=== PATIENT | male | born 1940 | race Caucasian/White ===

== ENCOUNTER → 2016-12-18 | Outpatient (CLI) | payer MEDICARE ==
[2016-04-16 20:16] VITALS: BP 176/90
[~2016-12-18] VITALS: Ht 167.6 cm; Wt 77.1 kg
[~2016-12-18] MED LIST: ALBU8.5H8 INH; AMLO5TAB2 PO; ATEN50TA PO; ATOR20TA58 PO; LOSA25TA4 PO; REGADENOSON 0.4 MG/5 ML DISP.SYRIN. IV ONE; TAMS0.4C2 PO; TIOT18CA IH
--- NOTE | 2016-12-18 12:16 | RAD ---
APPROVED REPORT Test Type: Pharmacological Stress Nurse/Tech: CHELSI Brewer Test Indications: Elevated Calcium score Cardiac History: none Medications: see EHR Medical History: see EHR Resting ECG: SB PVC 1degree AVB Resting Heart Rate: 46 bpm Resting Blood Pressure: 189/67mmHg Pretest Chest Pain: None Nurse/Tech Notes Consent: The procedure was explained to the patient in lay terms. Informed consent was witnessed. Ryan eout was entered into [facility]. History and Stress Test performed by CHELSI Brewer Pharm. Details Pharmacologic stress testing was performed using 0.4mg per 5ml of regadenoson given intravenously ove r 7-10 seconds. Stress Symptoms SOA CP with Lexiscan resolved with completion POST EXERCISE Reason for Termination: Infusion complete Target HR: 76 Max Blood Pressure: 150/61mmHg Blood Pressure response to exercise: Normal blood pressure response during stress. Chest Pain: Yes. INTERPRETATION Stress EKG Conclusion: No acute changes were noted. Imaging Protocol IMAGE PROTOCOL: Rest Tc-99m/stress Tc-99m 1 day Rest: Stress: Viability: Radiopharm.Tc99m EmccmqrpfPi21g Sestamibi Dose11.4mCi 34.4mCi Duration 17min. 12min. Img Date 12/18/2016 12/18/2016 Inj-Img Pptw66xty. 60min. Rest Admin Site:IV - Left AntecubitalAdministrator: CHELSI Brewer Stress Admin Site: IV - Left AntecubitalAdministrator: CHELSI Brewer STRESS DATA End Diast. Vol.152.0mlAv. Heart Rate66.0bpm LVEDV index BSA3.0mlCardiac Output0.1L/min End Syst. Vol.55.0mlCO Index BSA6.4L/min LVESV index BSA1.0mlMyocardial Chzo453.0g Eject. Wpsulxsb21.0% Stress Rates Pk. Fill Rate1.95EDV/secLVtime Pk. Fill 264.04msec Pk. Empty Rate3.17ESV/secLVtime Pk. Xmrwl134.06msec 06/20 Pk. Fill1.06EDV/sec Stress Scores Regional WT0.00Summed WT11.00 Regional WM0.00Summed WM1.00 LV Perfusion There is a large sized, severe in intensity FIXED mid to distal inferior wall, apex and inferolateral defect suggestive of prior infarct without any ischemia. Based on EKG and wall motion in the area, t his may represent a diaphragmatic attenuation artifact. Wall Motion Grossly normal wall motion. Inferior wall not well visualized. LV Perf. Quant 17 Seg. SSS10.00 17 Seg. SRS13.00 17 Seg. SDS0.00 Stress Defect Extent (% LAD)10.60Rest Defect Extent (% LAD)16.90Rev. Defect Extent (% LAD)0.00 Stress Defect Extent (% LCX) 11.30Rest Defect Extent (% LCX)25.00Rev. Defect Extent (% LCX)0.00 Stress Defect Extent (% RCA)38.90Rest Defect Extent (% RCA)51.10Rev. Defect Extent (% RCA)0.00 Stress Defect Extent (% CARO)21.50Rest Defect Extent (% CARO)32.20Rev. Defect Extent (% CARO)0.00 Other Information Quality:Average Risk Assessment: Low-Moderate Risk Conclusion 1. No evidence of stress induced EKG changes. 2. There is a large sized, severe in intensity FIXED mid to distal inferior wall, apex and inferolate ral defect suggestive of prior infarct without any ischemia. Based on EKG and wall motion in the area , this may represent a diaphragmatic attenuation artifact. 3. Normal EF at 60% 4. Low to moderate risk study
== END | disposition home or self-care (01) ==
LOC: NM 07:26
PROVIDERS: ATTEND Family Medicine
DX: R93.1 Abnormal findings on diagnostic imaging of heart and coronary circulation (principal); I25.10 Atherosclerotic heart disease of native coronary artery without angina pectoris; I10 Essential (primary) hypertension; Z79.01 Long term (current) use of anticoagulants; Z87.891 Personal history of nicotine dependence
CPT/HCPCS: 78452; 93017; 96374; 96376; A9500; J2785

== ENCOUNTER → 2017-01-30 | Outpatient (CLI) | payer MEDICARE ==
[2016-04-16 20:16] VITALS: BP 176/90
[~2017-01-30] MED LIST changes: -REGADENOSON 0.4 MG/5 ML DISP.SYRIN. IV ONE
[2017-01-30 12:39] LABS: BASO % 1 % (0-3); EOS # 0.5 x10^3/uL (0.0-0.7); EOS % 7 % (0-3); HEMATOCRIT 42.4 % (39.0-53.0); HEMOGLOBIN 13.6 g/dL (13.0-17.5); LYMPH # 1.1 x10^3/uL (1.0-4.8); LYMPH % 18 % (24-48); MEAN CORPUSCULAR HEMOGLOBIN 29 pg (25-35); MEAN CORPUSCULAR HGB CONC 32 g/dL (31-37); MEAN CORPUSCULAR VOLUME 90 fL (79-100); MONO # 0.7 x10^3/uL (0.0-1.1); MONO % 10 % (0-9); NEUT # 4.2 x10^3uL (1.8-7.7); NEUT % 64 % (31-73); PLATELET COUNT 125 x10^3/uL (140-400); RED BLOOD COUNT 4.73 x10^6/uL (4.30-5.70); RED CELL DISTRIBUTION WIDTH 14.3 % (11.5-14.5); WHITE BLOOD COUNT 6.5 x10^3/uL (4.0-11.0)
[2017-01-30 13:02] LABS: CALCIUM 9.2 mg/dL (8.5-10.1); CREATININE 3.2 mg/dL (0.7-1.3); GFR 18.9; PHOSPHORUS 3.7 mg/dL (2.6-4.7); POTASSIUM 4.6 mmol/L (3.5-5.1)
[2017-01-31 21:09] LABS: CALCIUM PTH 9.4 mg/dL (8.6-10.2)
== END | disposition home or self-care (01) ==
LOC: LAB 11:54
PROVIDERS: ATTEND Internal Medicine Nephrology
DX: N18.4 Chronic kidney disease, stage 4 (severe) (principal); N26.9 Renal sclerosis, unspecified; Z68.27 Body mass index [BMI] 27.0-27.9, adult
CPT/HCPCS: 36415; 80069; 83970; 85025

== ENCOUNTER → 2017-03-06 | Outpatient (CLI) | payer MEDICARE ==
[2016-04-16 20:16] VITALS: BP 176/90
[2017-03-06 12:04] LABS: ALBUMIN 3.1 g/dL (3.4-5.0); CALCIUM 10.1 mg/dL (8.5-10.1); CREATININE 3.2 mg/dL (0.7-1.3); GFR 18.9
[2017-03-06 12:05] LABS: PHOSPHORUS 3.4 mg/dL (2.6-4.7)
== END | disposition home or self-care (01) ==
LOC: LAB 11:17
PROVIDERS: ATTEND Internal Medicine Nephrology
DX: I12.9 Hypertensive chronic kidney disease with stage 1 through stage 4 chronic kidney disease, or unspecified chronic kidney disease (principal); N18.4 Chronic kidney disease, stage 4 (severe); Z68.27 Body mass index [BMI] 27.0-27.9, adult
CPT/HCPCS: 36415; 80069

== ENCOUNTER → 2017-04-16 | Outpatient (CLI) | payer MEDICARE ==
[2016-04-16 20:16] VITALS: BP 176/90
[2017-04-16 14:51] LABS: ALBUMIN 2.9 g/dL (3.4-5.0); CALCIUM 9.3 mg/dL (8.5-10.1); CREATININE 2.4 mg/dL (0.7-1.3); GFR 26.4; PHOSPHORUS 3.5 mg/dL (2.6-4.7)
== END | disposition home or self-care (01) ==
LOC: LAB 13:53
PROVIDERS: ATTEND Nurse Practitioner Family
DX: I12.9 Hypertensive chronic kidney disease with stage 1 through stage 4 chronic kidney disease, or unspecified chronic kidney disease (principal); N18.4 Chronic kidney disease, stage 4 (severe); Z68.27 Body mass index [BMI] 27.0-27.9, adult
CPT/HCPCS: 36415; 80069

== ENCOUNTER → 2017-05-08 | Outpatient (CLI) | payer MEDICARE ==
[2016-04-16 20:16] VITALS: BP 176/90
[2017-05-08 15:13] LABS: ALBUMIN 2.9 g/dL (3.4-5.0); CALCIUM 10.2 mg/dL (8.5-10.1); CREATININE 2.7 mg/dL (0.7-1.3); PHOSPHORUS 3.8 mg/dL (2.6-4.7); POTASSIUM 4.7 mmol/L (3.5-5.1)
== END | disposition home or self-care (01) ==
LOC: LAB 14:06
PROVIDERS: ATTEND Nurse Practitioner Family
DX: I12.9 Hypertensive chronic kidney disease with stage 1 through stage 4 chronic kidney disease, or unspecified chronic kidney disease (principal); N18.4 Chronic kidney disease, stage 4 (severe); Z68.27 Body mass index [BMI] 27.0-27.9, adult
CPT/HCPCS: 36415; 80069

== ENCOUNTER → 2017-05-21 | Outpatient (CLI) | payer MEDICARE ==
[2016-04-16 20:16] VITALS: BP 176/90
[2017-05-21 12:11] LABS: BASO % 1 % (0-3); EOS # 0.5 x10^3/uL (0.0-0.7); EOS % 7 % (0-3); HEMATOCRIT 41.2 % (39.0-53.0); HEMOGLOBIN 13.8 g/dL (13.0-17.5); LYMPH # 1.2 x10^3/uL (1.0-4.8); LYMPH % 17 % (24-48); MEAN CORPUSCULAR HEMOGLOBIN 31 pg (25-35); MEAN CORPUSCULAR HGB CONC 33 g/dL (31-37); MEAN CORPUSCULAR VOLUME 92 fL (79-100); MONO # 0.7 x10^3/uL (0.0-1.1); MONO % 10 % (0-9); NEUT # 4.6 x10^3uL (1.8-7.7); NEUT % 66 % (31-73); PLATELET COUNT 178 x10^3/uL (140-400); RED BLOOD COUNT 4.47 x10^6/uL (4.30-5.70); RED CELL DISTRIBUTION WIDTH 14.3 % (11.5-14.5)
[2017-05-21 12:15] LABS: CALCIUM 9.8 mg/dL (8.5-10.1); CREATININE 2.7 mg/dL (0.7-1.3); PHOSPHORUS 3.7 mg/dL (2.6-4.7); POTASSIUM 4.2 mmol/L (3.5-5.1)
[2017-05-21 21:09] LABS: CALCIUM PTH 9.8 mg/dL (8.6-10.2); CREATININE PTH 2.57 mg/dL (0.76-1.27); PTH INTACT 30 pg/mL (15-65)
== END | disposition home or self-care (01) ==
LOC: LAB 10:28
PROVIDERS: ATTEND Nurse Practitioner Family
DX: I12.9 Hypertensive chronic kidney disease with stage 1 through stage 4 chronic kidney disease, or unspecified chronic kidney disease (principal); N18.4 Chronic kidney disease, stage 4 (severe); Z68.27 Body mass index [BMI] 27.0-27.9, adult
CPT/HCPCS: 36415; 80069; 83970; 85025

== ENCOUNTER → 2017-10-01 | Outpatient (CLI) | payer MEDICARE ==
[2016-04-16 20:16] VITALS: BP 176/90
[2017-10-01 11:32] LABS: BASO % 1 % (0-3); EOS # 0.4 x10^3/uL (0.0-0.7); EOS % 7 % (0-3); HEMATOCRIT 39.6 % (39.0-53.0); HEMOGLOBIN 12.8 g/dL (13.0-17.5); LYMPH # 0.9 x10^3/uL (1.0-4.8); LYMPH % 16 % (24-48); MEAN CORPUSCULAR HEMOGLOBIN 29 pg (25-35); MEAN CORPUSCULAR HGB CONC 32 g/dL (31-37); MEAN CORPUSCULAR VOLUME 89 fL (79-100); MONO # 0.6 x10^3/uL (0.0-1.1); MONO % 11 % (0-9); NEUT # 3.8 x10^3uL (1.8-7.7); NEUT % 65 % (31-73); PLATELET COUNT 140 x10^3/uL (140-400); RED BLOOD COUNT 4.43 x10^6/uL (4.30-5.70); RED CELL DISTRIBUTION WIDTH 15.1 % (11.5-14.5); WHITE BLOOD COUNT 5.7 x10^3/uL (4.0-11.0)
[2017-10-01 11:36] LABS: CREATININE 2.9 mg/dL (0.7-1.3); GFR 21.2; PHOSPHORUS 3.7 mg/dL (2.6-4.7); POTASSIUM 4.1 mmol/L (3.5-5.1)
[2017-10-02 14:10] LABS: CALCIUM PTH 9.7 mg/dL (8.6-10.2); CREATININE PTH 2.62 mg/dL (0.76-1.27); PTH INTACT 22 pg/mL (15-65)
== END | disposition home or self-care (01) ==
LOC: LAB 10:36
PROVIDERS: ATTEND Internal Medicine Nephrology
DX: I12.9 Hypertensive chronic kidney disease with stage 1 through stage 4 chronic kidney disease, or unspecified chronic kidney disease (principal); N18.4 Chronic kidney disease, stage 4 (severe); Z68.27 Body mass index [BMI] 27.0-27.9, adult; Z87.891 Personal history of nicotine dependence
CPT/HCPCS: 36415; 80069; 83970; 85025

== ENCOUNTER → 2018-02-19 | Outpatient (CLI) | payer MEDICARE ==
[2016-04-16 20:16] VITALS: BP 176/90
[~2018-02-19] MED LIST changes: -AMLO5TAB2 PO; +AMLO5TAB7 PO; -LOSA25TA4 PO; +LOSA25TA5 PO
[2018-02-19 13:19] LABS: BASO % 1 % (0-3); EOS # 0.3 x10^3/uL (0.0-0.7); EOS % 6 % (0-3); HEMATOCRIT 40.2 % (39.0-53.0); LYMPH % 19 % (24-48); MEAN CORPUSCULAR HEMOGLOBIN 30 pg (25-35); MEAN CORPUSCULAR HGB CONC 32 g/dL (31-37); MEAN CORPUSCULAR VOLUME 92 fL (79-100); MONO # 0.5 x10^3/uL (0.0-1.1); MONO % 10 % (0-9); NEUT # 3.5 x10^3uL (1.8-7.7); NEUT % 64 % (31-73); PLATELET COUNT 156 x10^3/uL (140-400); RED BLOOD COUNT 4.37 x10^6/uL (4.30-5.70); RED CELL DISTRIBUTION WIDTH 14.5 % (11.5-14.5); WHITE BLOOD COUNT 5.4 x10^3/uL (4.0-11.0)
[2018-02-19 13:34] LABS: CALCIUM 10.1 mg/dL (8.5-10.1); CREATININE 3.1 mg/dL (0.7-1.3); GFR 19.6; PHOSPHORUS 3.7 mg/dL (2.6-4.7); POTASSIUM 4.3 mmol/L (3.5-5.1)
[2018-02-20 02:08] LABS: CALCIUM PTH 10.1 mg/dL (8.6-10.2); PTH INTACT 23 pg/mL (15-65)
== END | disposition home or self-care (01) ==
LOC: LAB 12:10
PROVIDERS: ATTEND Internal Medicine Nephrology
DX: I12.9 Hypertensive chronic kidney disease with stage 1 through stage 4 chronic kidney disease, or unspecified chronic kidney disease (principal); N18.4 Chronic kidney disease, stage 4 (severe); Z68.27 Body mass index [BMI] 27.0-27.9, adult; Z87.891 Personal history of nicotine dependence; Z88.8 Allergy status to other drugs, medicaments and biological substances
CPT/HCPCS: 36415; 80069; 83970; 85025

== ENCOUNTER → 2018-08-12 | Outpatient (CLI) | payer MEDICARE ==
[2016-04-16 20:16] VITALS: BP 176/90
[~2018-08-12] MED LIST changes: +ALBU2.5V8 INH; -ALBU8.5H8 INH; +AMLO5TAB10 PO; -AMLO5TAB7 PO; +LOSA25TA11 PO; -LOSA25TA5 PO
[2018-08-12 12:05] LABS: ALBUMIN 2.8 g/dL (3.4-5.0); BASO % 1 % (0-3); CALCIUM 9.6 mg/dL (8.5-10.1); CREATININE 3.5 mg/dL (0.7-1.3); EOS # 0.3 x10^3/uL (0.0-0.7); EOS % 6 % (0-3); HEMATOCRIT 36.9 % (39.0-53.0); HEMOGLOBIN 11.8 g/dL (13.0-17.5); LYMPH # 0.8 x10^3/uL (1.0-4.8); LYMPH % 15 % (24-48); MEAN CORPUSCULAR HEMOGLOBIN 30 pg (25-35); MEAN CORPUSCULAR HGB CONC 32 g/dL (31-37); MEAN CORPUSCULAR VOLUME 93 fL (79-100); MONO # 0.7 x10^3/uL (0.0-1.1); MONO % 13 % (0-9); NEUT # 3.7 x10^3uL (1.8-7.7); NEUT % 66 % (31-73); PHOSPHORUS 4.3 mg/dL (2.6-4.7); PLATELET COUNT 157 x10^3/uL (140-400); POTASSIUM 4.5 mmol/L (3.5-5.1); RED BLOOD COUNT 3.99 x10^6/uL (4.30-5.70); RED CELL DISTRIBUTION WIDTH 13.5 % (11.5-14.5); WHITE BLOOD COUNT 5.6 x10^3/uL (4.0-11.0)
[2018-08-12 18:07] LABS: CALCIUM PTH 9.4 mg/dL (8.6-10.2); CREATININE PTH 3.22 mg/dL (0.76-1.27); PTH INTACT 40 pg/mL (15-65)
== END | disposition home or self-care (01) ==
LOC: LAB 10:52
PROVIDERS: ATTEND Internal Medicine Nephrology
DX: I12.9 Hypertensive chronic kidney disease with stage 1 through stage 4 chronic kidney disease, or unspecified chronic kidney disease (principal); N18.4 Chronic kidney disease, stage 4 (severe); Z68.27 Body mass index [BMI] 27.0-27.9, adult
CPT/HCPCS: 36415; 80069; 83970; 85025

== ENCOUNTER → 2018-09-27 | Outpatient (CLI) | payer MEDICARE ==
[2016-04-16 20:16] VITALS: BP 176/90
--- NOTE | 2018-09-27 11:09 | RAD ---
PQRS Compliance Statement: One or more of the following individualized dose reduction techniques were utilized for this examination: 1. Automated exposure control 2. Adjustment of the mA and/or kV according to patient size 3. Use of iterative reconstruction technique CT chest without contrast September 27, 2018 INDICATION: Lung mass with shortness of air. History of asthma and cough. COMPARISON: CT chest March 29, 2018, PET/CT April 11, 2018 TECHNIQUE: Multiple axial CT images of the chest were obtained without intravenous contrast. Coronal and sagittal reformats are provided. FINDINGS: Thyroid gland is normal in appearance. No pathologically enlarged axillary, mediastinal or hilar lymph nodes are identified within the limitations of a noncontrast examination. Heart size is within normal limits. There is no pericardial effusion. Thoracic aorta is normal in course and caliber with mild callus but atheromatous plaque. There is a 6 mm solid noncalcified pulmonary nodule in the right middle lobe (series 2, image 55), stable. There is a subpleural 5 mm nodule in the anterior right middle lobe (series 2, image 68), stable. Mild bronchial thickening is compatible with bronchitis. There is severe pulmonary emphysematous changes primarily involving the left upper lobe. There is airspace opacification involving the inferior lingula, increased from the prior examination of April 13, 2017 although relatively stable from March 29, 2018. There may be increased retraction and volume loss. Endobronchial lesion is a differential consideration. Calcifications within the spleen likely represent sequela prior granulomatous exposure. Fusiform thickening of the adrenal glands bilaterally appear stable dating back to April 13, 2017 may represent adenomatous hyperplasia. No suspicious osseous amount is identified. IMPRESSION: 1. There is similar degree of airspace consolidation involving the lingula with associated volume loss compared to the prior examination from March 29, 2018. Findings may represent posttreatment related changes or chronic atelectasis from endobronchial lesion. Chronic infectious etiology remains in the differential. 2. Bronchial wall thickening is compatible with bronchitis. Severe emphysematous changes are identified in the left upper lobe. 3. No new or enlarging solid noncalcified pulmonary nodules are identified. 4. No new or enlarging thoracic lymphadenopathy. Electronically signed by: Cammy Maria MD (09/27/2018 11:06 AM) [id number]
== END | disposition home or self-care (01) ==
LOC: CT 10:05
PROVIDERS: ATTEND Internal Medicine Pulmonary Disease
DX: J43.9 Emphysema, unspecified (principal); R91.1 Solitary pulmonary nodule; I70.0 Atherosclerosis of aorta
CPT/HCPCS: 71250

== ENCOUNTER → 2018-12-24 | Outpatient (CLI) | payer MEDICARE ==
[2016-04-16 20:16] VITALS: BP 176/90
[2018-12-24 14:38] LABS: BASO % 1 % (0-3); EOS # 0.3 x10^3/uL (0.0-0.7); EOS % 6 % (0-3); HEMATOCRIT 37.4 % (39.0-53.0); HEMOGLOBIN 11.9 g/dL (13.0-17.5); LYMPH % 19 % (24-48); MEAN CORPUSCULAR HEMOGLOBIN 30 pg (25-35); MEAN CORPUSCULAR HGB CONC 32 g/dL (31-37); MEAN CORPUSCULAR VOLUME 95 fL (79-100); MONO # 0.6 x10^3/uL (0.0-1.1); MONO % 11 % (0-9); NEUT # 3.3 x10^3uL (1.8-7.7); NEUT % 64 % (31-73); PLATELET COUNT 176 x10^3/uL (140-400); RED BLOOD COUNT 3.95 x10^6/uL (4.30-5.70); RED CELL DISTRIBUTION WIDTH 13.3 % (11.5-14.5); WHITE BLOOD COUNT 5.2 x10^3/uL (4.0-11.0)
[2018-12-24 14:46] LABS: CALCIUM 10.3 mg/dL (8.5-10.1); CREATININE 4.1 mg/dL (0.7-1.3); GFR 14.1; PHOSPHORUS 3.2 mg/dL (2.6-4.7); POTASSIUM 4.2 mmol/L (3.5-5.1)
[2018-12-25 08:09] LABS: CALCIUM PTH 9.9 mg/dL (8.6-10.2); CREATININE PTH 3.63 mg/dL (0.76-1.27); PTH INTACT 22 pg/mL (15-65)
== END | disposition home or self-care (01) ==
LOC: LAB 13:19
PROVIDERS: ATTEND Nurse Practitioner Family
DX: I12.9 Hypertensive chronic kidney disease with stage 1 through stage 4 chronic kidney disease, or unspecified chronic kidney disease (principal); N18.4 Chronic kidney disease, stage 4 (severe); Z68.29 Body mass index [BMI] 29.0-29.9, adult
CPT/HCPCS: 36415; 80069; 83970; 85025

== ENCOUNTER → 2019-01-08 | Outpatient (CLI) | payer MEDICARE ==
[2016-04-16 20:16] VITALS: BP 176/90
--- NOTE | 2019-01-09 15:41 | RAD ---
CHEST PA LATERAL INDICATION: Starting dialysis. COMPARISON STUDY: CT chest 09/27/2018. FINDINGS: Lungs: Normal lung volume. Unchanged lingular opacity, better characterized on recent CT chest. No new consolidation. Left upper lung zone hyperlucency related to severe emphysematous changes. Pleura: No pleural effusion or pneumothorax. Heart and Mediastinum: The cardiomediastinal silhouette and great vessels are stable. Bones and Soft Tissues: The bones and soft tissues are stable. IMPRESSION: Stable left lingular opacity, best characterized on recent CT chest. No new consolidation. Electronically signed by: Tyrel Sherman MD (01/09/2019 3:38 PM) [id number]
== END | disposition home or self-care (01) ==
LOC: LAB 09:42
PROVIDERS: ATTEND Internal Medicine Nephrology
DX: J43.9 Emphysema, unspecified (principal); N18.5 Chronic kidney disease, stage 5
CPT/HCPCS: 71046; 86705; 86706; 87340

== ENCOUNTER 2019-12-31 11:50 | Emergency (ER) | payer MEDICARE ==
[~2019-12-31] VITALS: Ht 167.6 cm; Wt 68.6 kg
--- NOTE | 2019-12-31 12:53 | PHYS DOC ---
Past History Past Medical History: CHF, COPD, Renal Failure Past Surgical History: Other Additional Past Surgical Histo: right knee replacement Alcohol Use: None Drug Use: None General Adult EDM: Chief Complaint: FEVER HPI: HPI: Patient is a 7-year-old male who was referred in from the dialysis center with a fever of 101. Patient said he felt some chills yesterday he has a chronic cough he said maybe the cough is increased slightly he has notices some sinus drainage in the morning which is increased he also notices some pain left scapula with coughing which he has had with pneumonia in the past. No exposure to COVID-19 that he knows of. Patient has stable shortness of breath he has COPD on home oxygen normally but otherwise stable breathing no vomiting no abdominal pain makes just a small amount of urine denies dysuria. Currently feels okay overall. Just decreased energy. Past medical history chronic kidney disease medications include atorvastatin aspirin amiodarone metoprolol HCTZ hydralazine no other anticoagulation see home list. Review of Systems: Review of Systems: Constitutional: GI: Denies abdominal pain, nausea, vomiting, bloody stools or diarrhea : Denies dysuria Musculoskeletal: Denies back pain or joint pain Neurologic: Denies headache, focal weakness or sensory changes Endocrine: Denies polyuria or polydipsia Lymphatic: Denies swollen glands Psychiatric: Denies depression or anxiety Heart Score: Risk Factors: Risk Factors: DM, Current or recent (<one month) smoker, HTN, HLP, family history of CAD, obesity. Risk Scores: Score 0 - 3: 2.5% MACE over next 6 weeks - Discharge Home Score 4 - 6: 20.3% MACE over next 6 weeks - Admit for Clinical Observation Score 7 - 10: 72.7% MACE over next 6 weeks - Early Invasive Strategies Allergies: Allergies: Allergies Coded Allergies Type Severity Reaction Last Updated Verified cetirizine Allergy Intermediate 12/31/19 Yes Physical Exam: PE: Constitutional: Well developed, well nourished, no acute distress, non-toxic appearance. [] HENT: Normocephalic, atraumatic, bilateral external ears normal, oropharynx moist, no oral exudates, nose normal. [] Eyes: PERRLA, EOMI, conjunctiva normal, no discharge. [] Neck: Normal range of motion, no tenderness, supple, no stridor. [] Cardiovascular:Heart rate regular rhythm,2/6 jeanine noted. Lungs & Thorax: rhonchi left mild lung field. Abdomen: Bowel sounds normal, soft, no tenderness, no masses, no pulsatile masses. Skin: Warm, dry, no erythema, no rash. [] Back: No tenderness, no CVA tenderness. [] Extremities: No tenderness, no cyanosis, no clubbing, ROM intact, no edema. [] good thrill left arm. Neurologic: Alert and oriented X 3, normal motor function, normal sensory function, no focal deficits noted. [] Psychologic: Affect normal, judgement normal, mood normal. [] Current Patient Data: Vital Signs: Vital Signs Date Time Temp Pulse Resp B/P (MAP) Pulse Ox O2 Delivery O2 Flow Rate FiO2 12/31/19 12:00 98.1 100 20 156/56 (89) 96 Nasal Cannula 3.5 EKG: EKG: [] EKG shows a sinus rhythm with a rate of 94 no STEMI no acute ischemic changes noted interpreted by me time of encounter. Radiology/Procedures: Radiology/Procedures: cxr ebony pna.[] Impressions: Impression: Intervertebral development of a large left apical bulla. Subjacent atelectasis and infiltrates noted. Moderate size left pleural effusion is new in the interval. Underlying neoplastic etiology is not excluded. Interval follow-up to assess resolution. Lingular atelectasis is again seen. Minimal left lower lobe basilar atelectasis. RS Compliance Statement: One or more of the following individualized dose reduction techniques were utilized for this examination: 1. Automated exposure control 2. Adjustment of the mA and/or kV according to patient size 3. Use of iterative reconstruction technique Electronically signed by: Kin Hoskins MD (12/31/2019 2:29 PM) [id number] DICTATED AND SIGNED BY: KIN HOSKINS MD DATE: 12/31/19 1429 CC: MELLISA BROWN MD; OLIVIER MASON MD ~ Course & Med Decision Making: Course & Med Decision Making Pertinent Labs and Imaging studies reviewed. (See chart for details) [] 79-year-old male multiple medical problems COPD on oxygen end-stage renal disease on hemodialysis Sunday history of pneumonia A. fib on aspirin and amiodarone no anticoagulation presenting with some increasing chronic cough as well as fever to 101. COVID swab was ordered and pending chest x-ray shows a left upper lobe pneumonia concern for possible mass lesion CT scan was ordered. Due to hemodialysis status I did cover the patient with Vanco and Zosyn lactic acid normal blood pressure normal which is good. Oxygenation is adequate on his home oxygen. 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 covid test pending. Dragon Disclaimer: Dragon Disclaimer: This electronic medical record was generated, in whole or in part, using a voice recognition dictation system. Departure Departure: Impression: Primary Impression: Pneumonia Disposition: XFER T-[facility] Admitting Physician: Fransisco Garza Condition: STABLE Referrals: OLIVIER MASON MD (PCP) Justification of Admission: Justification of Admission: Justification of Admission Dx: Yes Comments: healthcare associated pneumonia with sob and fever. MELLISA BROWN MD Dec 31, 2019 12:53
--- NOTE | 2019-12-31 12:58 | RAD ---
Examination: CHEST AP ONLY History: Reason: FEVER, PT STATES HX OF POSSIBLE LEFT LUNG MASS / Spl. Instructions: / History: Comparison: 01/08/2019 two-view exam x-ray Findings: AP portable upright frontal view of the chest was obtained. Left upper lung mass is new compared to the previous exam measuring 6.5 cm transverse by 4.1 cm longitudinal. Interstitial thickening lung cho noted. Left basilar retrocardiac consolidation noted. Minimal left pleural effusion noted. Right lung field was unremarkable. The cardiomediastinal silhouette is normal Pulmonary hyperinflation suggested. No pneumothorax. Bony structures are unremarkable. IMPRESSION: New left upper lung field mass. Left basilar retrocardiac consolidation and small pleural effusion are also evident in the interval. Primary neoplastic process may account for these findings. Electronically signed by: Kin Julien MD (12/31/2019 12:55 PM) [id number]
[2019-12-31] MEDS ORDERED: VANCOMYCIN PER PHARMACY MC PRN (13:00)
[2019-12-31] MEDS ORDERED: PIPERACILLIN/TAZOBACTAM 2.25 GM in IV NORMAL SALINE 50ML 50 ML IV ONE (13:00)
--- NOTE | 2019-12-31 13:09 | EKG ---
[address] [address] Test Date: 2019-12-31 Test Time: 12:47:39 Pat Name: SANDOR STATON Department: Room: Gender: M Gaming Manager: : 1940 Requested By: MELLISA BROWN Order Number: [id number] Reading MD: Measurements Intervals [place] Rate: 94 P: 20 WA: 204 QRS: -11 QRSD: 108 T: 32 QT: 344 QTc: 435 Interpretive Statements SINUS RHYTHM ATRIAL PREMATURE COMPLEX(ES) LEFTWARD AXIS INCOMPLETE RIGHT BUNDLE BRANCH BLOCK OTHERWISE NORMAL ECG RI6.02 No previous ECG available for comparison
[2019-12-31 13:16] LABS: BASO % 0 % (0-3); EOS % 1 % (0-3); HEMATOCRIT 32.1 % (39.0-53.0); HEMOGLOBIN 9.8 g/dL (13.0-17.5); LYMPH # 0.1 x10^3/uL (1.0-4.8); LYMPH % 5 % (24-48); MEAN CORPUSCULAR HEMOGLOBIN 31 pg (25-35); MEAN CORPUSCULAR HGB CONC 31 g/dL (31-37); MEAN CORPUSCULAR VOLUME 101 fL (79-100); MONO # 0.3 x10^3/uL (0.0-1.1); MONO % 14 % (0-9); NEUT # 1.8 x10^3uL (1.8-7.7); NEUT % 79 % (31-73); PLATELET COUNT 127 x10^3/uL (140-400); RED BLOOD COUNT 3.19 x10^6/uL (4.30-5.70); RED CELL DISTRIBUTION WIDTH 17.1 % (11.5-14.5); WHITE BLOOD COUNT 2.2 x10^3/uL (4.0-11.0)
[2019-12-31 13:29] LABS: CALCIUM 8.8 mg/dL (8.5-10.1); GFR 6.5; POTASSIUM 4.7 mmol/L (3.5-5.1)
[2019-12-31] MEDS ORDERED: VANCOMYCIN 1.75 GM in IV NORMAL SALINE 500ML 500 ML IV ONE (13:30)
[2019-12-31 13:42] LABS: ALBUMIN 2.7 g/dL (3.4-5.0); ALBUMIN/GLOBULIN RATIO 0.9 (1.0-1.7); TOTAL BILIRUBIN 0.3 mg/dL (0.2-1.0); TOTAL PROTEIN 5.6 g/dL (6.4-8.2)
--- NOTE | 2019-12-31 14:32 | RAD ---
Examination: CT CHEST WO CONTRAST History: Reason: eval new lung mass v. pneumonia. / Spl. Instructions: / History: Comparison/Correlation: 09/27/2018 CT chest without contrast Findings: Mild increase in lingular atelectasis is noted in the interval. Moderate size left pleural effusion is present. At the left upper apex, there is a moderate size bulla present . Along the inferior aspect of the medulla, there is soft tissue density curvilinear process which extends from the anterior thorax to the posterior thorax and longitudinally extends for 3.5 cm. Transversely, this extends from the lateral pleural tube the medial left lung field level. Interstitial patchy infiltrates involving the left upper lobe are present at this level and more freely. Interstitial edema or infiltrates involving the superior segment of the left lower lobe is present to much lesser extent. Linear atelectasis is present at the left lower lobe basilar aspect. No enlarged thoracic lymph nodes. Minimal left lower lobe discoid atelectasis. The right lung field is clear. Calcific involvement of the left main, left anterior descending and proximal right circumflex coronary arteries is present. No acute bony process.. Low-attenuation adrenal gland nodules are stable probably representing benign adenomas. Impression: Intervertebral development of a large left apical bulla. Subjacent atelectasis and infiltrates noted. Moderate size left pleural effusion is new in the interval. Underlying neoplastic etiology is not excluded. Interval follow-up to assess resolution. Lingular atelectasis is again seen. Minimal left lower lobe basilar atelectasis. PQRS Compliance Statement: One or more of the following individualized dose reduction techniques were utilized for this examination: 1. Automated exposure control 2. Adjustment of the mA and/or kV according to patient size 3. Use of iterative reconstruction technique Electronically signed by: Kin Julien MD (12/31/2019 2:29 PM) [id number]
[2019-12-31 15:24] VITALS: BP 141/58
[2019-12-31 15:33] LABS: BILIRUBIN,URINE NEG (NEG); CLARITY,URINE HAZY; COLOR,URINE YELLOW; GLUCOSE,URINE NEG (NEG)
[2019-12-31 15:34] LABS: BACTERIA,URINE 0 /HPF (0-FEW); NITRITE,URINE NEG (NEG); SQUAMOUS EPITHELIAL CELL,UR FEW /LPF; UROBILINOGEN,URINE 0.2 mg/dL (0.2 mg/dL); WBC,URINE 20-40 /HPF (0-4)
[2019-12-31 16:30] LABS: % SEGS 47 % (35-66)
[2019-12-31 16:31] LABS: % BANDS 45 % (0-9); % EOS 1 % (0-5); % LYMPHS 1 % (24-48); % MONOS 6 % (0-10)
[2019-12-31 16:32] LABS: ANISOCYTOSIS SLIGHT; PLT ESTIMATE ADEQUATE (ADEQUATE); TOXIC GRANULATION SLIGHT
== END 2019-12-31 16:55 | disposition short-term general hospital (02) ==
LOC: ER 11:50
DX: J18.9 Pneumonia, unspecified organism (principal); Z20.828 Contact with and (suspected) exposure to other viral communicable diseases; R50.9 Fever, unspecified; R05 Cough; R06.02 Shortness of breath; I50.9 Heart failure, unspecified; J44.9 Chronic obstructive pulmonary disease, unspecified; N18.9 Chronic kidney disease, unspecified; Z98.890 Other specified postprocedural states; Z88.8 Allergy status to other drugs, medicaments and biological substances
CPT/HCPCS: 36415; 71045; 71250; 80053; 81001; 83605; 83880; 84484; 85007; 85025; 87040; 87086; 93005; 96365; 96366; 96367; 99285; C9803; J2543; J3370; J7040; U0003